=== PATIENT | male | born 1975 | race Caucasian/White ===

== ENCOUNTER 2018-05-06 10:51 | Emergency (ER) | payer SELFPAY ==
[~2018-05-06] VITALS: Ht 170.2 cm; Wt 61.2 kg
[~2018-05-06 10:51] MED LIST: CIPR500T94 PO; HYDR-971 PO; MECL12.5 PO
[2018-05-06 10:55] VITALS: BP 116/74
[2018-05-06] MEDS ORDERED: HYDR-971 PO (14:05)
--- NOTE | 2018-05-06 14:54 | PHYS DOC ---
Past Medical History Past Medical History: Other Additional Past Medical Histor: PERICARDITIS Past Surgical History: Other Additional Past Surgical Histo: LEFT ARM Alcohol Use: Occasionally Drug Use: None Adult General Chief Complaint Chief Complaint: UPPER EXTREMITY INJURY HPI HPI Patient is a 43 year old m with cc of right arm pain he woke up with it a few days ago he thinks he slept on it wrong because this started when he woke up after sleeping. He has not fallen no trauma. It is sharp and shooting and radiates from the elbow down into the forearm even into the fingers. Finally today he could not take the pain at work so he came to the emergency room for evaluation no shoulder pain no chest pain no neck pain no headache Review of Systems Review of Systems Constitutional: Denies fever or chills [] Respiratory: Denies cough or shortness of breath [] Cardiovascular: No additional information not addressed in HPI [] : Denies dysuria or hematuria [] Musculoskeletal: Integument: Denies rash or skin lesions [] Neurologic: Denies headache, All other systems were reviewed and found to be within normal limits, except as documented in this note. Allergies Allergies Allergies Coded Allergies Type Severity Reaction Last Updated Verified No Known Drug Allergies 10/10/14 No Physical Exam Physical Exam Constitutional: Well developed, well nourished, no acute distress, non-toxic appearance. [] HENT: Normocephalic, atraumatic, bilateral external ears normal, oropharynx moist, no oral exudates, nose normal. [] Eyes: PERRLA, EOMI, conjunctiva normal, no discharge. [] Neck: Normal range of motion, no tenderness, supple, no stridor. [] Cardiovascular:Heart rate regular rhythm, no murmur [] Lungs & Thorax: Bilateral breath sounds clear to auscultation [] Abdomen: Bowel sounds normal, soft, no tenderness, no masses, no pulsatile masses. [] Skin: Warm, dry, no erythema, no rash. [] Extremities: Right elbow shows mild to moderate tenderness to palpation laterally especially in the ulnar gutter area. Distal strength is actually intact median ulnar and radial nerve function appears intact. Sensation is grossly normal as well. There is no atrophy radial pulses intact there is no erythema induration at the elbow. Neurologic: Alert and oriented X 3, normal motor function, normal sensory function, no focal deficits noted. [] Psychologic: Affect normal, judgement normal, mood normal. [] Current Patient Data Vital Signs Vital Signs Date Time Temp Pulse Resp B/P (MAP) Pulse Ox O2 Delivery O2 Flow Rate FiO2 05/06/18 10:55 97.9 77 18 116/74 (88) 100 Room Air 97.9 EKG EKG [] Radiology/Procedures Radiology/Procedures [] Course & Med Decision Making Course & Med Decision Making Pertinent Labs and Imaging studies reviewed. (See chart for details) []Overall I suspect a compressive neuropathy at the elbow joint. Recommended rest with a sling pain control was given patient was counseled on the caution usually of these medications to include no driving no operating heavy machinery temporary use only I suspect that it should improve with rest instructed to follow-up with his doctor should the symptoms persist. This point in time is neuro intact and also any sinus infection I don't think that septic joint think that he has a DVT or anything else like that it really seems to be localized to the ulnar gutter area and sounds radicular or peripheral neuropathy in nature Dragon Disclaimer Dragon Disclaimer This electronic medical record was generated, in whole or in part, using a voice recognition dictation system. Departure Departure Impression: Primary Impression: Compression neuropathy Disposition: HOME, SELF-CARE Condition: STABLE Patient Instructions: [facility] Scripts Hydrocodone/Apap 5-325 (NORCO 5-325 TABLET) 1 Each Tablet 1-2 EACH PO PRN Q6HRS PRN for PAIN, #15 as needed for pain Prov: HONG EASON MD 05/06/18 HONG EASON MD May 06, 2018 14:54
== END 2018-05-06 14:30 | disposition home or self-care (01) ==
LOC: ER 10:51
DX: G56.81 Other specified mononeuropathies of right upper limb (principal)
CPT/HCPCS: 99283

== ENCOUNTER 2021-11-11 07:38 | Emergency (ER) | payer SELFPAY ==
[~2021-11-11] VITALS: Ht 170.2 cm; Wt 55.2 kg
[~2021-11-11 07:38] MED LIST changes: +HYDR-3164 PO; -HYDR-971 PO
[2021-11-11] MEDS ORDERED: KETOROLAC 15 MG/ML VIAL. IVP ONE (08:15)
[2021-11-11] MEDS ORDERED: KETOROLAC 60 MG/2 ML VIAL. IM ONE (08:15)
[2021-11-11 08:31] LABS: BASO # 0.1 x10^3/uL (0.0-0.2); BASO % 1 % (0-3); EOS # 0.3 x10^3/uL (0.0-0.7); EOS % 4 % (0-3); HEMATOCRIT 39.7 % (39.0-53.0); HEMOGLOBIN 13.4 g/dL (13.0-17.5); LYMPH # 1.8 x10^3/uL (1.0-4.8); LYMPH % 28 % (24-48); MEAN CORPUSCULAR HEMOGLOBIN 33 pg (25-35); MEAN CORPUSCULAR HGB CONC 34 g/dL (31-37); MEAN CORPUSCULAR VOLUME 98 fL (79-100); MONO # 0.9 x10^3/uL (0.0-1.1); MONO % 14 % (0-9); NEUT # 3.3 x10^3/uL (1.8-7.7); NEUT % 53 % (31-73); PLATELET COUNT 189 x10^3/uL (140-400); RED BLOOD COUNT 4.03 x10^6/uL (4.30-5.70); RED CELL DISTRIBUTION WIDTH 14.4 % (11.5-14.5); WHITE BLOOD COUNT 6.3 x10^3/uL (4.0-11.0)
[2021-11-11 08:41] LABS: CALCIUM 8.4 mg/dL (8.5-10.1); CREATININE 0.7 mg/dL (0.7-1.3); GFR 122.5; POTASSIUM 3.9 mmol/L (3.5-5.1)
--- NOTE | 2021-11-11 08:54 | RAD ---
EXAM: XR CHEST 2V 11/11/2021 8:22 AM CLINICAL INDICATION: Chest pain COMPARISON: Chest radiograph 09/02/2019 TECHNIQUE: PA and lateral views of the chest FINDINGS: The heart is normal in size. Lungs are hyperexpanded. No consolidation, pleural effusion, or pneumothorax. No acute osseous abnormality. IMPRESSION: No acute cardiopulmonary abnormality. Electronically signed by: Lillian Lane MD (11/11/2021 8:51 AM) [id number]
[2021-11-11] MEDS ORDERED: IBUP200T44 PO (09:30)
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
[2021-11-11 09:38] VITALS: BP 141/93
--- NOTE | 2021-11-15 12:22 | EKG ---
[facility] [address] [place] [address] Test Date: 2021-11-11 Test Time: 07:50:27 Pat Name: PATTIE QUINTANILLA Department: Room: Gender: M Magazine Hand: : 1975 Requested By: ALBAN CHABMERS Order Number: [id number] Reading MD: Mani Coreas MD Measurements Intervals [place] Rate: 70 P: 59 UT: 188 QRS: 69 QRSD: 86 T: 66 QT: 402 QTc: 437 Interpretive Statements SINUS RHYTHM Electronically Signed On 11-15-2021 11:28:20 CDT by Mani Coreas MD
--- NOTE | 2021-11-15 12:22 | EKG ---
[facility] [address] [place] [address] Test Date: 2021-11-11 Test Time: 08:23:39 Pat Name: PATTIE QUINTANILLA Department: Room: Gender: M Lab Head: : 1975 Requested By: ALBAN CHAMBERS Order Number: [id number] Reading MD: Mani Coreas MD Measurements Intervals [place] Rate: 59 P: 70 GA: 190 QRS: 70 QRSD: 84 T: 64 QT: 422 QTc: 418 Interpretive Statements SINUS RHYTHM Electronically Signed On 11-15-2021 11:28:04 CDT by Mani Coreas MD
== END 2021-11-11 10:25 | disposition home or self-care (01) ==
LOC: ER 07:38
DX: I30.9 Acute pericarditis, unspecified (principal); I10 Essential (primary) hypertension; F17.200 Nicotine dependence, unspecified, uncomplicated
CPT/HCPCS: 36415; 71046; 80048; 84484; 85025; 96374; 99284; J1885; 93005